=== PATIENT | male | born 1950 | race Caucasian/White ===

== ENCOUNTER 2019-01-15 11:34 | Inpatient (IN) | payer MEDICARE ==
[~2019-01-15] VITALS: Ht 172.7 cm; Wt 102.1 kg
[~2019-01-15 11:34] MED LIST: ALPRAZOLAM0.5 MG PO; ASPIRIN325 MG PO; DAILY MULTIPLE1 EACH PO; ELOCON15 G1 TOP; ESZOPICLONE3 MG PO; FISH OIL 1,0001 EAC3 PO; KETOCONAZOLE120 ML TOP; METOPROLOL SUCC50 MG PO; OXYCODONE HCL5 MG PO; OXYCONTIN10 MG PO; PAROXETINE HCL30 MG PO; TIZANIDINE HCL4 M1 PO; VIAGRA50 MG PO; VITAMIN D1000 UNI1 PO
[2019-01-15] MEDS ORDERED: VALERIAN ROOT100 MG PO (11:54)
[2019-01-15] MEDS ORDERED: ST. JOHN'S WOR300 MG PO ×2 (11:54→16:31)
--- NOTE | 2019-01-15 15:41 | NUR ---
PT REPORTS PAIN 4/10 BUT DOES NOT WANT ANY PAIN MEDICATIONS AT THIS TIME.
[2019-01-15] MEDS ORDERED: ASPIR-TRIN325 MG PO (16:32)
[2019-01-15] MEDS ORDERED: TURMERIC500 M2 PO (16:33)
--- NOTE | 2019-01-15 17:22 | NUR ---
AT BEDSIDE DISCUSSING PLAN OF CARE AND TREATMENT, PT GRANDSON AT BEDSIDE WELL.
--- NOTE | 2019-01-15 17:30 | NUR ---
PT ADMITTED AT 1445 THIS AFTERNOON, PT REPORTS PAIN 4/10 DENIED WANTING PAIN MEDICATIONS, DID AGREE TO IV TYLENOL OR LESSER COMPARABLE PAIN MEDICATIONS DID NOT LIKE DILAUDID FROM E.D.. PT IS STANDBY ASSIST TO AMBULATE. VODIING WELL. IVF INFUSING HAS HAD ABX X2 TODAY.
--- NOTE | 2019-01-15 19:38 | NUR ---
PT RESTING IN BED, WATCHING TV. PT DENIES PAIN AT THIS TIME. SHIFT REPORT RECIEVED FROM JESSICA MCLEOD. NO NEEDS AT THIS TIME. CALL LIGHT IN REACH.
--- NOTE | 2019-01-15 20:34 | NUR ---
PT RESTING IN BED, WATCHING TV. NO ABD PAIN AT THIS TIME. CHRONIC NECK AND SHOULDER PAIN RATED 6/10 BUT PT DOES NOT WANT PRN PAIN MEDICATIONS RIGHT NOW. RN WILL ADDRESS PAIN AGAIN. ASSESSMENT, VS, I&O COMPLETED. PT REPOSITIONED IN BED. NO FURTHER NEEDS AT THIS TIME. CALL LIGHT IN REACH, BED ALARMS ON.
--- NOTE | 2019-01-15 21:30 | NUR ---
PT RESTING IN BED, WATCHING TV. PT STATES THAT HE HAS ALL OVER PAIN RATED 7/10. PT REPOISITIONED AND PRN PAIN MED GIVEN. SCHEDULED IV MED GIVEN. PT USED URINAL AT BEDSIDE. NO OTHER NEEDS AT THIS E TIME. CALL LIGHT AND BELONGINGS IN REACH.
--- NOTE | 2019-01-15 21:41 | NUR ---
ENTERED PT'S ROOM TO FIX BEEPING IV PUMP. IT IS INFUSING WELL AT THIS TIME. PT DENIES FURTHER NEEDS CALL LIGHT IS WITHIN REACH.
--- NOTE | 2019-01-15 22:36 | EKG ---
[facility] [address] [facility] [place], [place] [address] Signed Normal sinus rhythm Normal ECG No previous ECGs available Confirmed by MARY YANG MD ([id number]) on 01/15/2019 10:36:26 PM Electronically Signed By: MARY YANG MD 01/15/19 2236 PATIENT NAME: MICHEAL LAGUNA III Electrocardiogram DATE OF : 54 PHYSICIAN: MARY YANG MD REPORT #: [id number] REPORT IS CONFIDENTIAL AND NOT TO BE RELEASED WITHOUT AUTHORIZATION
--- NOTE | 2019-01-15 23:59 | NUR ---
PT WATCHING TV IN BED. PT STATES THAT HIS PAIN "ALL OVER" FROM NOT BEING ABLE TO MOVE AROUND. EDUCATED PT ON HOW TO USE THE BED CONTROLS TO CHANGE BED POSITION. WARM BLANKET, COMFORT KIT AND WALK DECLINED. PT GIVEN PRN PAIN MEDICATION PER EMAR AND CHAMOMILE TEA. NO OTHER NEEDS STATED AT THIS TIME. CALL LIGHT IN REACH.
--- NOTE | 2019-01-16 01:37 | NUR ---
PT RESTING IN BED, WATCHING TV. SCHEDULED IV MEDICATION GIVEN PER EMAR. PT STATES HIS PAIN IS 3/10 NOW. PT EDUCATION GIVEN ABOUT IV MEDICATIONS. NO FURTHER NEEDS AT THIS TIME. CALL LIGHT IN REACH.
--- NOTE | 2019-01-16 03:15 | NUR ---
PT RESTING WITH EYES CLOSED IN BED. IV INFUSING PER ORDER. RR16, EVEN, UNLABORED. CALL LIGHT IN REACH.
--- NOTE | 2019-01-16 04:58 | NUR ---
PT SLEPT OFF/ON THIS SHIFT. PT HAS HAD "ALL OVER" PAIN. GIVEN PRN PAIN MEDS WITH RELIEF. [place], SCDS, SBA, RA, CLEAR, LIQUID DIET. FULL CODE. IV R ARM, CLEAN, DRY, INTACT, NO REDNESS OR SWELLING. IV INFUSING PER EMAR. PT USES BEDSIDE URINAL AT NIGHT. LLQ PAIN INCREASES WITH MOVEMENT.
--- NOTE | 2019-01-16 06:31 | NUR ---
PT AWAKE IN ROOM, WATCHING TV. PT STATES HIS "OVER ALL" PAIN IS 3/10 AND THE LLQ PAIN IS A DULL ACHE. ASSESSMNET, VS AND I&O COMPLETED. PRN PAIN MED DISCUSSED AT THIS TIME TO STAY ON TOP OF THE PAIN. PT STATED HE WANTS TO GO "[place]" FOR NOW. NO FURTHER NEEDS AT THIS TIME. CALL LIGHT IN REACH.
--- NOTE | 2019-01-16 06:44 | CONS ---
[facility] [address] [place], [place] [address] Signed DATE OF CONSULTATION: 01/15/2019 CHIEF COMPLAINT: Left lower quadrant abdominal pain. HISTORY OF PRESENT ILLNESS: Micheal is a 68-year-old gentleman I have taken care of previously including a colonoscopy in 2017. At that time, he had minimal to moderate internal hemorrhoids along with some small hyperplastic polyps and then some surk-vz-[id number] sigmoid diverticulosis. He woke up this morning with pain in the left lower quadrant, so he came to emergency room for evaluation. He was tender on palpation with normal vital signs, but an elevated white count. A CT scan was performed and if sure enough he has an area of localized diverticulitis where the descending colon joins the sigmoid colon. Consequently, I was asked to admit him as a general surgeon on-call. He has already received his first dose of cefepime and Flagyl. He does empirically like narcotics and he was given 0.5 mg of Dilaudid. He said he did not like how it made him feel. Even though he has a history of hepatitis, we are going to go ahead and give him one dose of IV Tylenol and then we will switch him over to some p.o. ibuprofen. In the meantime, he has been taking multiple doses of daily aspirin because of the pain. He also told me his primary care provider left town and so he is down to valerian root, Saint Casey's Wort, and some aspirin. All the other drugs he quit taking. 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 He also went through a divorce since I saw him two years ago, although he does have a grandson who seems to be very helpful. ALLERGIES: Darvocet, morphine, Relafen, testosterone, and nabumetone. MEDICATIONS: Valerian root, Saint Casey's Wort, and aspirin. PAST MEDICAL HISTORY: Includes neck pain, back pain, insomnia, sinusitis, allergic rhinitis, hypertension, rectal bleeding, hepatitis C virus, chronically elevated liver function test, bilateral renal cysts right greater than left, kidney stones treated by Dr. Ace, benign prostatic hypertrophy, hyperlipidemia, vitamin D deficiency, osteoarthritis, compression fracture of the thoracic vertebral body, right 10th rib fracture, trigger finger, tension headaches, restless legs syndrome, depression, stress disorder, anxiety, rotator cuff syndrome, mild coronary and peripheral arterial disease. PAST SURGICAL HISTORY: Includes an open appendectomy through a right lower quadrant incision, laparoscopic Electronically Signed By: DANNA SEBASTIAN MD 01/16/19 0644 PATIENT NAME: MICHEAL LAGUNA III CONSULTATION DATE OF : 54 REPORT #: [id number] PHYSICIAN: DANNA SEBASTIAN MD PCP: NO PRIMARY CARE PHYSICIAN REPORT IS CONFIDENTIAL AND NOT TO BE RELEASED WITHOUT AUTHORIZATION [address] [address] Signed cholecystectomy, cervical arthrodesis, shoulder surgery, orthopedic amputation left 4th finger, laminectomy, and a colonoscopy in 2017. SOCIAL HISTORY: He was from his in the last couple years. He has 2 children. He is a self-employed class a truck driver. He is currently single. He prefers to [facility]. He has no current primary care provider. He quit smoking. He has a drink once in a while. He does not use IV drugs. FAMILY HISTORY: He gives no family history of colon cancer or polyps. There has been heart disease in the family with his father. REVIEW OF SYSTEMS: I had reviewed 10 systems with Micheal and his grandson. He thinks he is doing fine since he stopped all his medications. He told me about his driving speeding tickets and he is waiting to resume his class a truck driver. He talked about his renal cysts, renal calculi, and hepatitis C virus. PHYSICAL EXAMINATION: VITAL SIGNS: Blood pressure 115/80, heart rate 82, his respiratory rate 18, temperature is 97.4, he is 94% on room air. He is 5 feet 8 inches, 102 kg. GENERAL: Micheal is a 68-year-old gentleman lying semi-recumbent supine in his hospital bed. His grandson is at the bedside. Our nurse, Rosa Elena, is with us. He does not appear systemically ill or toxic. LUNGS: Clear to auscultation. HEART: Regular rate and rhythm without murmurs. ABDOMEN: Moderately protuberant with previous surgical scars. No evidence of any hernias. He is tender somewhat lateral in the left lower quadrant consistent with the CT scan. RECTAL: Exam is not performed currently. LABORATORY DATA: His white blood cell count is 12.8, hemoglobin 18, neutrophils 75, platelets 182. His BUN 13, creatinine 0.86, AST 30, ALT 64, alkaline phosphatase 79, total bilirubin 1.0. His albumin is 4.1. Urinalysis negative. RADIOGRAPHIC STUDIES: CT scan is reviewed, both the report and the images. I can clearly see the inflammatory changes where the descending colon joins the sigmoid colon along with diverticulosis. He has bilateral renal cysts, the right being larger than the left. He also has some calcification in the arteries including the coronary arteries. ASSESSMENT AND PLAN: Electronically Signed By: DANNA SEBASTIAN MD 01/16/19 0644 PATIENT NAME: MICHEAL LAGUNA III CONSULTATION DATE OF : 54 REPORT #: [id number] PHYSICIAN: DANNA SEBASTIAN MD PCP: NO PRIMARY CARE PHYSICIAN REPORT IS CONFIDENTIAL AND NOT TO BE RELEASED WITHOUT AUTHORIZATION [facility] [address] [place], [place] [address] Signed Micheal is a 68-year-old gentleman, who presents with his first episode of diverticulitis. He has been started on cefepime and Flagyl. We are going to let him have his clear liquid diet. He seems to have significant medical issues, but he has not seen a primary care provider in probably 2 years. Consequently, we are going to ask one of our hospitalists come see him in for basic review and maybe he can establish with our [facility]. We will give him one dose of IV Tylenol and then we will switch over to ibuprofen based on his history of hepatitis. I have reviewed all the findings with Micheal and his grandson in detail. We have also reviewed diverticulitis in detail. We will do our best to treat him conservatively and avoid surgery if at all possible. They understand that quite clearly. He has expressed understanding and agrees above plan. Danna Sebastian MD ALB/MODL /[id number] cc: DannaMD Ewelina Ambrose MD Copies: DANNA SEBASTIAN MD, LOHITH VEERAPPA MD ~ Electronically Signed By: DANNA SEBASTIAN MD 01/16/19 0644 PATIENT NAME: MICHEAL LAGUNA III CONSULTATION DATE OF : 54 REPORT #: [id number] PHYSICIAN: DANNA SEBASTIAN MD PCP: NO PRIMARY CARE PHYSICIAN REPORT IS CONFIDENTIAL AND NOT TO BE RELEASED WITHOUT AUTHORIZATION
--- NOTE | 2019-01-16 07:15 | NUR ---
PT RESTING RECLINED IN CHAIR, EYES CLOSED AND RESPIRATIONS EVEN AND UNLABORED. CALL LIGHT AND H2O IN REACH. PT APPEARS TO BE SLEEPING COMFORTABLY. REPORT RECEIVED FROM HARSHA SOOD.
--- NOTE | 2019-01-16 07:38 | NUR ---
PATIENT RESTING IN BED. PATIENT'S BREAKFASR ORDERED. CALL LIGHT WITHIN REACH. NO OTHER NEEDS AT THIS TIME
--- NOTE | 2019-01-16 08:34 | NUR ---
PATIENT SITTING UP ON THE EDGE OF THE BED. VISITOR IN ROOM. SETS UP BATHROOM FOR SHOWER. CALL LIGHT WITHIN REACH. NO OTHER NEEDS AT THIS TIME
--- NOTE | 2019-01-16 08:52 | NUR ---
PT RESTING SUPINE IN BED ALERT AND ORIENTED. ASSESSMENT COMPLETED AND AM MEDS ADMINISTERED. PT DENIES SOB, NAUSEA OR PAIN AT THIS TIME. CALL LIGHT AND H2O IN REACH. NO NEEDS OR CONCERNS VOICED.
--- NOTE | 2019-01-16 09:14 | NUR ---
PATIENT RESTING IN BED. RN IN ROOM. VITAL SIGNS AND I&O DONE. CALL LIGHT WITHIN REACH. NO OTHER NEEDS AT THIS TIME
--- NOTE | 2019-01-16 09:30 | NUR ---
SPOKE WITH PATIENT IN ROOM. PATIENT LIVES ALONE, HAS FRIENDS AND FAMILY TO CALL IF NEEDED. NO ISSUES WITH AMBULATION. PLANS TO RETURN HOME AT DISCHARGE. HAS NO PCP. DISCUSSED IMPORTANCE OF HAVING PCP. PATIENT STATES UNDERSTANDING. DISCUSSED DIAGNOSIS, PATIENT PULLS OUT EDUCATION PACK, STATES HE HAS LOOKED THROUGH IT ALL. DENIES QUESTIONS. NO BARRIERS TO DISCHARGE HOME AT THIS TIME.
--- NOTE | 2019-01-16 13:22 | NUR ---
PATIENT SITTING UP IN BED. FAMILY IN ROOM. VITAL SIGNS AND I&O DONE. CALL LIGHT WITHIN REACH. NO OTHER NEEDS AT THIS TIME
--- NOTE | 2019-01-16 14:41 | NUR ---
PT BACK TO BED FROM SHOWER AND STATES "I'M FEELING A WHOLE LOT BETTER, I'M SURPRISED I WASN'T DISCHARGED TODAY, MAYBE I WILL GET TO GO HOME TOMORROW." PT ASSESSMENT COMPLETED AND IV ABX AND PRESCRIBED FLUIDS ARE INFUSING ORDERED. CALL LIGHT AND H2O IN REACH. PT VERY TALKATIVE AND APPEARS TO BE IN GOOD SPIRITS. PT AGREES TO USE CALL LIGHT WHEN HE FEELS READY TO GO FOR A WALK.
--- NOTE | 2019-01-16 16:41 | NUR ---
PATIENT AMBULATING IN THE HALLWAY
--- NOTE | 2019-01-16 17:11 | NUR ---
PATIENT RESTING IN BED. VITAL SIGNS AND I&O DONE. PATIENT'S DINNER ORDERED. WATER GIVEN. CALL LIGHT WITHIN REACH. NO OTHER NEEDS AT THIS TIME
--- NOTE | 2019-01-16 19:38 | NUR ---
REPORT RECEIVED, PT RESTING IN BED, NO NEEDS AT THIS TIME, IV FLUIDS INFUSING PER EMAR WNL, CALL LIGHT WITHIN REACH.
--- NOTE | 2019-01-16 20:13 | NUR ---
DR. YANG TO THE FLOOR, NOTIFIED HIM THAT THE PT WOULD LIKE SOMETHING TO HELP HIM SLEEP THIS EVENING, DR. YANG STATED THAT HE WILL PUT IN AN ORDER FOR MELATONIN, NO OTHER ORDERS AT THIS TIME.
--- NOTE | 2019-01-16 20:21 | NUR ---
SCHEDULED ABX ADMINISTERED, PT RESTING IN BED, ALERT, PT DENIES ANY NEEDS AT THIS TIME, CALL LIGHT WITHIN REACH.
--- NOTE | 2019-01-16 20:34 | NUR ---
PT RESTING IN BED, SCHEDULED ABX GIVEN, PT'S VSS, NO NEEDS AT THIS TIME, CALL LIGHT WITHIN REACH. FALL PRECAUTIONS IN PLACE.
--- NOTE | 2019-01-16 21:50 | NUR ---
EVENING MEDS ADMINISTERED, PT DENIED NEED FOR SCHEDULED MELATONIN FOR SLEEP, ASSESSMENT COMPLETE, LS CLEAR, BT HYPOACTIVE, PT DENIES SIGNIFICANT PAIN, DESCRIBES "SORENESS", PT DENIES NEED FOR PRN PAIN MEDICATION, PT DENIES NAUSEA. VSS, PT DENIES ANY NEEDS AT THIS TIME, IV FLUIDS/ABX INFUSING PER EMAR WNL. CALL LIGHT WITHIN REACH. FALL PRECAUTIONS IN PLACE.
--- NOTE | 2019-01-17 00:20 | NUR ---
PT RESTING IN BED, EYES CLOSED, BREATHS EVEN, UNLABORED, NO NEEDS AT THIS TIME. IV FLUIDS/ABX INFUSING PER EMAR WNL. CALL LIGHT WITHIN REACH.
--- NOTE | 2019-01-17 01:30 | NUR ---
PT RESTING IN BED, NO NEEDS AT THIS TIME, CALL LIGHT WITHIN REACH. IV FLUIDS INFUSING PER EMAR WNL.
--- NOTE | 2019-01-17 02:53 | NUR ---
IV ABX INFUSING PER EMAR. PT C/O 5/10 KIRBY PAIN, PT GIVEN PRN MOTRIN PER EMAR. PT DENIES FURTHER NEEDS AT THIS TIME, CALL LIGHT WITHIN REACH. FALL PRECAUTIONS IN PLACE.
--- NOTE | 2019-01-17 04:49 | NUR ---
PT AOX4, APPROPRIATE, SLEPT MOST OF SHIFT, PT'S VSS, IV FLUIDS/ABX INFUSED PER EMAR WNL, UO QS, PT DID HAVE A BM THIS SHIFT, PT RECEIVED PRN MOTRIN X1 THIS SHIFT RELATED TO KIRBY PAIN, OTHERWISE NO C/O PAIN, NO C/O NAUSEA, ON RA. USES CALL LIGHT APPROPRIATELY, TOLERATING LOW FIBER DIET. PT INDEPENDENT IN ROOM WITH AMBULATION. SCD'S.
--- NOTE | 2019-01-17 07:25 | NUR ---
BEDSIDE HANDOFF REPORT RECEIVED FROM CIRCULATION MAN RN. PT RESTIGN IN BED. PT REQUESTING MORTIN FOR HEADACHE. PT DENIES OTHER NEEDS AT THIS TIME.
[2019-01-17] MEDS ORDERED: LEVAQUIN500 MG PO (08:56)
[2019-01-17] MEDS ORDERED: ASPIR-TRIN325 MG PO (08:57)
[2019-01-17] MEDS ORDERED: FLAGYL500 MG PO (08:57)
--- NOTE | 2019-01-17 09:00 | NUR ---
PT RESTING IN BED, EATING BREAKFAST. PT RATING HEADACHE 5/10, GIVEN MORTIN. PT ON ROOM AIR, LUNG SOUNDS CLEAR. PT TOLERATING LOW FIBER DIET, DENIES NAUSEA, ABD SOFT AND NONTENDER TO PALPATE, BOWEL TONES ACTIVE. IV FLAGYL INFUSING. [facility] INATCT, PT WITHOUT EDEMA. DISCUSSED PLAN OF CARE FOR THE DAY, PLAN FOR DISCHARGE AFTER IV CEFEPIME. PT DENIES OTHER NEEDS AT THIS TIME.
--- NOTE | 2019-01-18 06:27 | DS ---
[facility] [address] [place], [place] [address] Signed ADMISSION DATE: 01/15/2019 DISCHARGE DATE: 01/17/2019 FINAL DIAGNOSIS: Sigmoid diverticulosis. PROCEDURE: CT scan of abdomen and pelvis. HISTORY OF PRESENT ILLNESS: Micheal is a 68-year-old gentleman who is known to have diverticulosis from a colonoscopy several years ago. He awoke in the morning with left lower quadrant abdominal pain and came to emergency room for evaluation. His white count was elevated and he was tender in the left lower quadrant. A CT scan confirmed his diverticulitis where the descending colon joins the sigmoid colon. I was asked to admit him as a general surgeon on-call. HOSPITAL COURSE: Micheal was admitted as above and placed on cefepime and Flagyl. By the next morning, his white count had normalized and he was already having much less pain in the left lower quadrant. We left him on clear liquids. By the following day, he continued to improve and had very minimal pain in the left lower quadrant. We placed him on a low residue diet. By the next morning, he had no pain. He was tolerating his low residue diet and had a good bowel movement along with lots of flatus. On exam, he has no pain at this point. In addition, he has not seen his medical doctor in over two years. Consequently, we had our Internal Medicine Service come and see Micheal here in the hospital. His triglyceride level was slightly high at 161. His hepatitis C virus level is pending and his hemoglobin A1c level is still pending. He plans to follow up with the [facility] after discharge. Due to his progress, we are going to be discharging him this morning. DISCHARGE PLANS AND MEDICATIONS: Micheal is going to be discharged to home with a prescription for Levaquin 500 mg one tablet p.o. daily for 7 days. Also Flagyl 500 mg one tablet p.o. t.i.d. for 7 days. He will have a total of 9-1/2 to 10 days of antibiotics. He can resume his fixo-wgl-hfehosi chronic medications. He was using a significant amount aspirin on a daily basis. We have counseled him multiple times now that he can use aspirin and ibuprofen sparingly. He should avoid Tylenol if possible because of the history of hepatitis C virus. If he needs to take a dose or two of Tylenol, I would be fine. We are going to continue his low residue diet at home. We have been over that several times. He is welcome to perform his activities of daily living including walking up and down stairs and showering and bathing as usual. We are not sending him with any Electronically Signed By: DANNA SEBASTIAN MD 01/18/19 0627 PATIENT NAME: MICHEAL LAGUNA III DISCHARGE SUMMARY DATE OF : 54 REPORT #: [id number] PHYSICIAN: DANNA SEBASTIAN MD PCP: DANNA SEBASTIAN MD REPORT IS CONFIDENTIAL AND NOT TO BE RELEASED WITHOUT AUTHORIZATION [address] [address] Signed narcotic pain medication. He can resume driving today. He can resume his work here in a few days when he is feeling better. He will return to my office in 7 to 10 days for followup for diverticulitis. He is going to follow up with Dr. Mary Yang in 2-6 weeks at the [facility] for his ongoing medical evaluation including the hepatitis C virus and the hemoglobin A1c levels. I reviewed this with Micheal yesterday and today. He has expressed understanding and agrees above plan. Danna Sebastian MD ALB/MODL /[id number] cc: MD Danna Tony MD Copies: MARY YANG MD, ANDREW L MD ~ Electronically Signed By: DANNA SEBASTIAN MD 01/18/19 0627 PATIENT NAME: MICHEAL LAGUNA III DISCHARGE SUMMARY DATE OF : 54 REPORT #: [id number] PHYSICIAN: DANNA SEBASTIAN MD PCP: DANNA SEBASTIAN MD REPORT IS CONFIDENTIAL AND NOT TO BE RELEASED WITHOUT AUTHORIZATION
== END 2019-01-17 13:25 | disposition home or self-care (01) | DRG 392 ==
LOC: ED 11:34 → MS 14:17
PROVIDERS: ADMIT Colon & Rectal Surgery
DX: K57.32 Diverticulitis of large intestine without perforation or abscess without bleeding (principal); I10 Essential (primary) hypertension; G89.29 Other chronic pain; M54.2 Cervicalgia; M54.9 Dorsalgia, unspecified; B18.2 Chronic viral hepatitis C; N28.1 Cyst of kidney, acquired; E78.1 Pure hyperglyceridemia; E55.9 Vitamin D deficiency, unspecified; N40.0 Benign prostatic hyperplasia without lower urinary tract symptoms; G25.81 Restless legs syndrome; F41.8 Other specified anxiety disorders; I25.10 Atherosclerotic heart disease of native coronary artery without angina pectoris; I73.9 Peripheral vascular disease, unspecified; Z90.49 Acquired absence of other specified parts of digestive tract; Z87.891 Personal history of nicotine dependence; Z79.82 Long term (current) use of aspirin; Z88.5 Allergy status to narcotic agent; Z88.8 Allergy status to other drugs, medicaments and biological substances
CPT/HCPCS: 36415; 74177; 80053; 80061; 81001; 83036; 85025; 87521; 87522; 93005; 93010; 99285-25; J0131; J0692; J1170; J1650; J2405; J7030; J7042; J7060; J7121; Q9967

== ENCOUNTER 2019-05-09 13:34 | Emergency (ER) | payer OTHER, MEDICARE ==
[~2019-05-09] VITALS: Ht 172.7 cm; Wt 102.1 kg
[~2019-05-09 13:34] MED LIST changes: +ASPIR-TRIN325 MG PO; +FLAGYL500 MG PO; +LEVAQUIN500 MG PO; +ST. JOHN'S WOR300 MG PO; +TURMERIC500 M2 PO; +VALERIAN ROOT100 MG PO
== END 2019-05-09 17:44 | disposition home or self-care (01) ==
LOC: ED 13:34
DX: S43.402A Unspecified sprain of left shoulder joint, initial encounter (principal); S43.401A Unspecified sprain of right shoulder joint, initial encounter; S46.912A Strain of unspecified muscle, fascia and tendon at shoulder and upper arm level, left arm, initial encounter; S46.911A Strain of unspecified muscle, fascia and tendon at shoulder and upper arm level, right arm, initial encounter; I10 Essential (primary) hypertension; F32.9 Major depressive disorder, single episode, unspecified; Z88.5 Allergy status to narcotic agent; Z88.8 Allergy status to other drugs, medicaments and biological substances; Z79.899 Other long term (current) drug therapy; Z79.82 Long term (current) use of aspirin; X58.XXXA Exposure to other specified factors, initial encounter; Y99.0 Civilian activity done for income or pay
CPT/HCPCS: 99283